=== PATIENT | male | born 1995 | race Two or more races ===

== ENCOUNTER 2021-10-18 22:54 | Inpatient (IN) | payer OTHER ==
[~2021-10-18] VITALS: Ht 154.9 cm; Wt 72.6 kg
--- NOTE | 2021-10-18 22:55 | NUR ---
[facility] 85 AND [employer] FOR AMS. BS ON FILED 26. 250 ML OF D10 GIVEN TEMPORARY HELP AGENCY REFERRAL CLERK. PT AWAKE BUT LETHARGIC AT THIS TIME. A/OX2. TOLERATING R/A WELL WITH NO RESP DISTRESS. CONNECTED PT TO POX AND MONITOR.
--- NOTE | 2021-10-18 23:19 | NUR ---
HOLLIS #18G ESTABLISHED EMBEDDED SYSTEMS ENGINEER. BLOOD COLLECTED AND SENT TO LAB
--- NOTE | 2021-10-18 23:22 | NUR ---
OFFERED PT SANDWICH. WILL REASSESS BS
--- NOTE | 2021-10-18 23:27 | NUR ---
URINE COLLECTED AND SENT TO LAB
[2021-10-18 23:42] LABS: BASOPHILS % (AUTO) 0.1 % (0.0-2.0); HEMATOCRIT 40 % (39-51); HEMOGLOBIN 13.4 g/dL (13.5-17.5); LYMPHOCYTES % (AUTO) 5.7 % (20.0-44.0); MEAN CORPUSCULAR HGB CONC 33 g/dl (31.0-36.0); MEAN CORPUSCULAR VOLUME 90 fL (80-96); MONOCYTES # (AUTO) 0.8 K/uL (0.1-1.30); NEUTROPHILS # (AUTO) 15.1 K/uL (1.8-8.9); NEUTROPHILS % (AUTO) 89.2 % (43.0-81.0); PLATELET COUNT (AUTO) 191 K/uL (150-450); RED BLOOD CELL COUNT(AUTO) 4.45 MIL/uL (4.5-6.0); WHITE BLOOD COUNT (AUTO) 16.9 K/uL (4.3-11.0)
[2021-10-18 23:46] LABS: BILIRUBIN,URINE NEGATIVE (NEGATIVE); COLOR,URINE YELLOW (YELLOW); LEUKOCYTE ESTERASE ,URINE TRACE (NEGATIVE); NITRITE, URINE NEGATIVE (NEGATIVE); PROTEIN,URINE NEGATIVE (NEGATIVE); UGLUCOSE 100 MG/DL mg/dL (NEGATIVE); UROBILINOGEN,URINE 0.2 EU/dL (0.2)
[2021-10-19] VITALS (7 sets, daily range): BP systolic 91–139; BP diastolic 58–79
[2021-10-19 00:04] LABS: BILIRUBIN,DIRECT 0.1 mg/dL (0.0-0.2); BILIRUBIN,TOTAL 0.2 mg/dL (0.2-1.0); CREATININE 0.9 mg/dL (0.6-1.3); TOTAL PROTEIN, SERUM 7.5 g/dL (6.4-8.2)
[2021-10-19 00:08] LABS: POTASSIUM 2.6 mmol/L (3.5-5.1)
--- NOTE | 2021-10-19 00:08 | NUR ---
CRITICAL LABS POTASSIUM 2.6 GLUCOSE 24
--- NOTE | 2021-10-19 00:10 | NUR ---
MICHAELLE DONE AND SENTT O LAB
[2021-10-19 00:11] LABS: BACTERIA,URINE Few /HPF (None Seen); MUCUS,URINE Rare /LPF (None Seen); RBC,URINE 0-2 /HPF (0-2); SQUAMOUS EPITHELIAL CELL,UR None Seen /HPF (None Seen); WBC,URINE 21-50 /HPF (0-3)
[2021-10-19] MEDS ORDERED: POTASSIUM CL. PREMIX PERIPHER. 150 ML ONE (00:13)
[2021-10-19] MEDS ORDERED: POTASSIUM CHLORIDE 20 MEQ TAB.PRT.SR PO ONE ×2 (00:14→00:30)
--- NOTE | 2021-10-19 00:28 | NUR ---
FSBS: 91. MD AWARE
[2021-10-19] MEDS ORDERED: POTASSIUM CHLORIDE 10 MEQ/50 ML PREMIXED IVPB FOR PERIPHERAL LINE IV ONE (00:30)
--- NOTE | 2021-10-19 00:40 | NUR ---
RAD AT BED SIDE FOR CXR
--- NOTE | 2021-10-19 00:41 | NUR ---
DRUG ABUSE SOCIAL WORKER AT PT'S BEDSIDE
--- NOTE | 2021-10-19 00:46 | NUR ---
MRSA SWAB COLLECTED AND SENT TO LAB. PATIENT'S BELONGINGS LIST DONE.
[2021-10-19] MEDS ORDERED: ONDANSETRON HCL/PF 4 MG/2 ML VIAL IVP PRN (01:00)
[2021-10-19] MEDS: IV D5/0.45 NACL 1,000 ML IV SCH ×5 (01:00→21:12)
[2021-10-19] MEDS ORDERED: CEFTRIAXONE 1GM BAG (ER ONLY) 1 GM/50 ML PIGGYBACK IV ONE (01:00)
[2021-10-19] MEDS: POTASSIUM CHLORIDE 20 MEQ TAB.PRT.SR PO SCH ×3 (01:00→16:26)
[2021-10-19] MEDS ORDERED: MORPHINE SULFATE INJ 2 MG/ML DISP.SYRIN IV PRN (01:00)
[2021-10-19] MEDS ORDERED: ACETAMINOPHEN 325 MG TABLET PO PRN (01:00)
[2021-10-19] MEDS ORDERED: CEFTRIAXONE 1GM BAG (ER ONLY) 50 ML IV ONE (01:18)
[2021-10-19] MEDS ORDERED: POTASSIUM CL. PREMIX PERIPHER. 50 ML ONE (02:57)
--- NOTE | 2021-10-19 03:04 | NUR ---
COMMUNICATION AND OUTREACH MANAGER AT PT'S BEDSIDE
--- NOTE | 2021-10-19 04:34 | NUR ---
POC BS 49; OFFERED PT JUICE. WILL REASSES BS
--- NOTE | 2021-10-19 04:45 | NUR ---
NOTIFIED DR. COBB REGARDING BS 49. AWAITING RESPONSE. PT AWAKE AND RESPONSIVE. TOLERATED JUICE WELL. NO S/SX OF HYPOGLYCEMIA.
--- NOTE | 2021-10-19 04:53 | NUR ---
URINE OUTPUT : 950ML VIA URINAL
[2021-10-19] MEDS ORDERED: DEXTROSE 50%-WATER 50 ML DISP.SYRIN ONE ×2 (05:49→08:01)
--- NOTE | 2021-10-19 05:52 | NUR ---
DR. COBB ORDERED FOR D50 IVP ONCE. ORDERS CARRIED OUT AND ADMINISTERED. WILL REASSESS BS.
[2021-10-19] MEDS ORDERED: DEXTROSE 50%-WATER 50 ML DISP.SYRIN IVP ONE (06:00)
--- NOTE | 2021-10-19 07:16 | NUR ---
PHOTOGRAPHER SCIENTIFIC CLOSING NOTE: PT SLEEPING AT THIS TIME. TOLERATING R/A WELL WITH NO RESP DISTRESS. LAC #18G D5 1/2 NS @ 200ML/HR; PATENT AND INTACT. CONNECTED PT TO POX AND MONITOR. SAFETY MEASURES IN PLACE. BED IN LOWEST LOCKED POSITION, SIDE RAILS UPX2, CALL LIGHT WITHIN EASY REACH. ALL NEEDS MET AT THIS TIME. WILL ENDORSE XOCHILT TO ONCOMING RN.
--- NOTE | 2021-10-19 07:40 | NUR ---
GOT BED 322-1
--- NOTE | 2021-10-19 08:09 | NUR ---
REPORT TO HANNAH GIBSON FOR XOCHILT.
--- NOTE | 2021-10-19 09:00 | NUR ---
RN NOTE PATIENT IS ALERT , ORIENTED TIMES 3 , ON ROOM AIR TOLERATING WELL.O2 SAT 98%, CONTINENT USING URINAL.,IV ACCES ON LFA22 HE, RUNNING AT D5 1/2 NS AT 200ML/HR .PATIENT ROMAN ANY PAIN OR DISCOMFORT, PATIENT MISSED BREAKFAST , CALLED KITCHEN AND ASKED FOR THE BREAKFAST TRAY.WILL CONTINUE TO MONITOR.
[2021-10-19] MEDS: HEPARIN SODIUM, PORCINE 5000 UNITS/1 ML VIAL SQ SCH ×2 (09:46→21:16)
[2021-10-19 10:31] LABS: BASOPHILS % (AUTO) 0.2 % (0.0-2.0); EOSINOPHILS % (AUTO) 0.1 % (0.0-6.0); HEMATOCRIT 39 % (39-51); HEMOGLOBIN 13.2 g/dL (13.5-17.5); LYMPHOCYTES # (AUTO) 1.4 K/uL (0.8-4.8); LYMPHOCYTES % (AUTO) 12.3 % (20.0-44.0); MEAN CORPUSCULAR HGB CONC 34 g/dl (31.0-36.0); MEAN CORPUSCULAR VOLUME 89 fL (80-96); MONOCYTES # (AUTO) 0.6 K/uL (0.1-1.30); MONOCYTES % (AUTO) 5.1 % (2.0-12.0); NEUTROPHILS # (AUTO) 9.2 K/uL (1.8-8.9); NEUTROPHILS % (AUTO) 82.3 % (43.0-81.0); PLATELET COUNT (AUTO) 198 K/uL (150-450); RED BLOOD CELL COUNT(AUTO) 4.38 MIL/uL (4.5-6.0); WHITE BLOOD COUNT (AUTO) 11.1 K/uL (4.3-11.0)
[2021-10-19 10:51] LABS: CREATININE 0.8 mg/dL (0.6-1.3); MAGNESIUM 2.1 mg/dL (1.8-2.4); POTASSIUM 3.8 mmol/L (3.5-5.1)
[2021-10-19] MEDS: BLOOD SUGAR DIAGNOSTIC 1 EACH STRIP IN SCH ×3 (12:42→21:24)
--- NOTE | 2021-10-19 19:21 | NUR ---
rn closing note RN NOTE PATIENT IS ALERT , ORIENTED TIMES 3 , ON ROOM AIR TOLERATING WELL.O2 SAT 98%, CONTINENT USING URINAL.,IV ACCES ON LFA22 HE, RUNNING AT D5 1/2 NS AT 200ML/HR .Bed is at lowest position , side rails are up , call light within reach.
--- NOTE | 2021-10-19 19:40 | NUR ---
FILM BOOKER OPENING NOTE RECEIVED PT AWAKE IN BED. A/O X3 AND ABLE TO MAKE NEEDS KNOWN. PT STABLE ON ROOM AIR. NO SOB OR S/S OF RESPIRATORY DISTRESS. BREATHING EVEN AND UNLABORED. ON EXTERNA MISSION PLANNER READING SR. IV ACCESS LFA 22 GAUGE RUNNING D5 1/2 NS @ 200 ML/HR. SAFETY PRECAUTIONS IN PLACE. BED IN LOWEST LOCKED POSITION, HOB ELEVATED, SIDE RAILS UP X2, AND CALL LIGHT AND TABLE WITHIN REACH. ALL NEEDS MET AT THIS TIME.
[2021-10-19] MEDS ORDERED: CEFTRIAXONE 1 G in IV D5W 50 ML IV SCH (22:00)
[2021-10-20] VITALS: BP 127/89
[2021-10-20 06:31] LABS: BASOPHILS % (AUTO) 0.5 % (0.0-2.0); EOSINOPHILS % (AUTO) 0.8 % (0.0-6.0); HEMATOCRIT 44 % (39-51); HEMOGLOBIN 14.6 g/dL (13.5-17.5); LYMPHOCYTES # (AUTO) 2.5 K/uL (0.8-4.8); LYMPHOCYTES % (AUTO) 37.2 % (20.0-44.0); MEAN CORPUSCULAR HGB CONC 34 g/dl (31.0-36.0); MEAN CORPUSCULAR VOLUME 91 fL (80-96); MONOCYTES # (AUTO) 0.5 K/uL (0.1-1.30); MONOCYTES % (AUTO) 7.2 % (2.0-12.0); NEUTROPHILS # (AUTO) 3.7 K/uL (1.8-8.9); NEUTROPHILS % (AUTO) 54.3 % (43.0-81.0); PLATELET COUNT (AUTO) 192 K/uL (150-450); RED BLOOD CELL COUNT(AUTO) 4.79 MIL/uL (4.5-6.0); WHITE BLOOD COUNT (AUTO) 6.8 K/uL (4.3-11.0)
--- NOTE | 2021-10-20 06:36 | NUR ---
LEASE ATTENDANT CLOSING NOTE PT AWAKE IN BED. A/O X3 AND ABLE TO MAKE NEEDS KNOWN. PT STABLE ON ROOM AIR. NO SOB OR S/S OF RESPIRATORY DISTRESS. BREATHING EVEN AND UNLABORED. IV ACCESS LFA 22 GAUGE, INTACT AND PATENT. ALL DUE MEDS GIVEN ORDERED. SAFETY PRECAUTIONS IN PLACE AT ALL TIMES. BED IN LOWEST LOCKED POSITION, HOB ELEVATED, SIDE RAILS UP X2, AND CALL LIGHT AND TABLE WITHIN REACH. ALL NEEDS MET AT THIS TIME AND WILL ENDORSE TO ONCOMING NURSE FOR XOCHILT.
[2021-10-20 07:15] LABS: ALBUMIN 3.4 g/dL (3.4-5.0); BILIRUBIN,TOTAL 0.2 mg/dL (0.2-1.0); CALCIUM, SERUM 8.2 mg/dL (8.5-10.1); CREATININE 0.9 mg/dL (0.6-1.3); MAGNESIUM 2.2 mg/dL (1.8-2.4); PHOSPHORUS 3.9 mg/dL (2.5-4.9); POTASSIUM 4.1 mmol/L (3.5-5.1); TOTAL PROTEIN, SERUM 6.9 g/dL (6.4-8.2)
--- NOTE | 2021-10-20 07:20 | NUR ---
RN OPENING NOTES RECEIVED PATIENT IN BED, AWAKE. A/O X3, VERBALLY RESPONSIVE AND ABLE TO MAKE NEEDS KNOWN. ON ROOM AIR, NO SOB NOTED. BREATHING EVEN AND UNLABORED. NOTED WITH IV ACCESS LFA #22 GAUGE, INTACT AND PATENT. SALINE LOCKED. SAFETY PRECAUTIONS IN PLACE. BED IN LOWEST LOCKED POSITION, HOB ELEVATED, SIDE RAILS UP X2, AND CALL LIGHT AND TABLE WITHIN REACH. WILL CONTINUE TO MONITOR PATIENT.
[2021-10-20] MEDS: BLOOD SUGAR DIAGNOSTIC 1 EACH STRIP IN SCH ×2 (08:14→11:48)
[2021-10-20] MEDS: POTASSIUM CHLORIDE 20 MEQ TAB.PRT.SR PO SCH (08:36)
[2021-10-20] MEDS: HEPARIN SODIUM, PORCINE 5000 UNITS/1 ML VIAL SQ SCH (08:37)
--- NOTE | 2021-10-20 14:40 | NUR ---
WORKS MANAGER NOTE PATIENT DISCHARGED ACCOMPANIED BY [employer] OFFICERS IN STABLE CONDITION. PATIENT WAS PLACED UNDER ARREST AND WILL BE BOOKED AT [facility] BY [employer] OFFICER NICHOLAS RICHARDSON #[id number]. PATIENT A/O X4, VERBALLY RESPONSIVE AND ABLE TO MAKE NEEDS KNOWN. IV ACCESS REMOVED, PRESSURE DRESSING APPLIED. ARM NAMEBAND REMOVED. ALL BELONGINGS ACCOUNTED FOR, FORM SIGNED BY PATIENT. EXITCARE FOLDER GIVEN TO PATIENT. HEALTH TEACHINGS PROVIDED WITH VERBALIZATION OF UNDERSTANDING. PATIENT LEFT UNIT @1438 , ACCOMPANIED BY [employer] OFFICERS. MD AND CN AWARE OF DISCHARGE AND BOOKING.
== END 2021-10-20 15:00 | DRG 424 ==
LOC: ER 22:56 → TRANSITION 10-19 00:57 → TELE 10-19 08:00
PROVIDERS: ADMIT Nurse Practitioner Family; ATTEND Nurse Practitioner Family
DX: E16.1 Other hypoglycemia (principal); D72.828 Other elevated white blood cell count; E87.6 Hypokalemia; N39.0 Urinary tract infection, site not specified; F43.9 Reaction to severe stress, unspecified; F19.188 Other psychoactive substance abuse with other psychoactive substance-induced disorder; Z20.822 Contact with and (suspected) exposure to COVID-19
CPT/HCPCS: 36415; 71045-TC; 80048-TC; 80053-TC; 80076-TC; 81001; 82962-TC; 83605-TC; 83690-TC; 83735-TC; 84100-TC; 85025-TC; 85730-TC; 87081-TC; 87086-TC; G0378; J0696; J1644; J2270; J2405; J3480; J3490; J7040; J7060